=== PATIENT | female | born 1995 | race Two or more races ===

== ENCOUNTER 2023-06-07 14:51 | Emergency (ER) | payer OTHER ==
[2023-06-07 15:11] VITALS: O2SAT 99
[2023-06-07 15:20] LABS: BASOPHILS % (AUTO) 0.5 %; EOSINOPHILS # (AUTO) 0.3 10^3/uL (0.0-0.7); EOSINOPHILS % (AUTO) 5.5 %; HCT - HEMATOCRIT 42.3 % (37.0-47.0); HGB - HEMOGLOBIN 14.3 g/dL (12.0-16.0); LYMPHOCYTES # (AUTO) 1.6 10^3/uL (1.5-3.5); LYMPHOCYTES % (AUTO) 26.2 %; MEAN CORPUSCULAR HEMOGLOBIN 29.2 pg (27.0-31.0); MEAN CORPUSCULAR HGB CONC 33.8 g/dL (32.0-36.0); MEAN CORPUSCULAR VOLUME 86.5 fL (81.0-99.0); MEAN PLATELET VOLUME 10.5 fL (7.9-10.8); MONOCYTES # (AUTO) 0.3 10^3/uL (0.0-1.0); MONOCYTES % (AUTO) 5.5 %; NEUTROPHILS # (AUTO) 3.7 10^3/uL (1.5-6.6); PLT - PLATELET COUNT 221 10^3/uL (130-450); RED BLOOD COUNT 4.89 10^6/uL (4.20-5.40); RED CELL DISTRIBUTION WIDTH 12.4 % (12.0-15.0)
[2023-06-07 15:25] LABS: BILIRUBIN,URINE NEGATIVE (NEGATIVE); GLUCOSE, URINE (UA) NEGATIVE (NEGATIVE); KETONES,URINE (UA) NEGATIVE (NEGATIVE); LEUKOCYTE ESTERASE, URINE NEGATIVE (NEGATIVE); NITRITE,URINE NEGATIVE (NEGATIVE); OCCULT BLOOD,URINE NEGATIVE (NEGATIVE); PH,URINE 6.5 PH (5.0-7.5); PROTEIN,URINE NEGATIVE (NEGATIVE); UROBILINOGEN,URINE 0.2 (NORMAL) E.U./dL (NORMAL)
[2023-06-07 15:26] LABS: CLARITY,URINE CLEAR (CLEAR)
[2023-06-07 15:27] LABS: HCG UR QUAL NEGATIVE
[2023-06-07 15:33] LABS: ALBUMIN 4.7 g/dL (3.2-5.5); ALBUMIN/GLOBULIN RATIO 1.6 (1.0-2.2); BILIRUBIN,TOTAL 0.8 mg/dL (0.2-1.0); CALCIUM 9.9 mg/dL (8.5-10.3); CREATININE 0.7 mg/dL (0.6-1.3); POTASSIUM 3.8 mmol/L (3.5-4.5); TOTAL PROTEIN 7.7 g/dL (6.4-8.9)
--- NOTE | 2023-06-07 16:02 | ED Physician Documentation ---
PD HPI FEMALE - Stated complaint Stated Complaint: ,PELVIC PX - Chief complaint Chief Complaint: Abd Pain - History obtained from History obtained from: Patient - History of Present Illness Timing - onset: How many days ago (10) Timing - duration: Days (10) Timing - details: Gradual onset, Still present, Waxing and waning Associated symptoms: Pelvic pain, Vaginal discharge, Dysuria. No: Fever, Chest/shoulder pain, Genital sore/lesion Contributing factors: Sexually active. No: , Exposed to STD Similar symptoms before: Has not had sx before Recently seen: Not recently seen Review of Systems Constitutional: denies: Fever, Chills Nose: denies: Rhinorrhea / runny nose, Congestion Throat: denies: Sore throat Respiratory: denies: Cough GI: reports: Abdominal Pain, Nausea. denies: Vomiting, Constipation, Diarrhea : reports: Dysuria, Frequency, Discharge. denies: Unable to Void, Vaginal bleeding Skin: denies: Rash, Lesions PD PAST MEDICAL HISTORY - Past Medical History Cardiovascular: None Endocrine/Autoimmune: None - Present Medications Home Medications: Ambulatory Orders Medication Instructions Recorded Confirmed Fluconazole [Diflucan] 150 mg PO ONCE #1 tablet 06/07/23 Naproxen 500 mg PO BID #15 tab 06/07/23 metroNIDAZOLE [Flagyl] 500 mg PO BID 7 Days #14 tablet 06/07/23 - Allergies Allergies/Adverse Reactions: Allergies Allergy/AdvReac Type Severity Reaction Status Date / Time No Known Drug Allergies Allergy Verified 06/07/23 15:02 PD ED PE NORMAL - Vitals Vital signs reviewed: Yes - General General: Alert and oriented X 3, No acute distress, Well developed/nourished - Abdomen Abdomen: Normal bowel sounds, Soft, Non distended, Other (tender lower abd suprapubic area midline mainly. Not particularly tender right lower. No perucssion nor rebound tenderness. ) - Female Female : Deferred (can get the information with self-swab. ) - Back Back: No CVA TTP - Derm Derm: Normal color, Warm and dry Results - Vitals Vitals: Vital Signs - 24 hr 06/07/23 06/07/23 15:04 17:00 Temperature 36.8 C Heart Rate 81 80 Respiratory 16 18 Rate Blood Pressure 127/79 130/75 O2 Saturation 99 99 Oxygen O2 Source Room air - Labs Labs: Laboratory Tests 06/07/23 06/07/23 06/07/23 15:15 15:16 15:16 WBC 6.0 RBC 4.89 Hgb 14.3 Hct 42.3 MCV 86.5 MCH 29.2 MCHC 33.8 RDW 12.4 Plt Count 221 MPV 10.5 Neut # (Auto) 3.7 Lymph # (Auto) 1.6 [place] # (Auto) 0.3 Eos # (Auto) 0.3 Baso # (Auto) 0.0 Absolute Nucleated RBC 0.00 Nucleated RBC % 0.0 Sodium 137 Potassium 3.8 Chloride 103 Carbon Dioxide 30 Anion Gap 4.0 L BUN 18 Creatinine 0.7 Estimated GFR (MDRD) 99 Glucose 81 Calcium 9.9 Total Bilirubin 0.8 AST 17 ALT 39 Alkaline Phosphatase 145 H Total Protein 7.7 Albumin 4.7 Globulin 3.0 Albumin/Globulin Ratio 1.6 Lipase 21 Urine Color DARK YELLOW Urine Clarity CLEAR Urine pH 6.5 Ur Specific [place] 1.025 Urine Protein NEGATIVE Urine Glucose (UA) NEGATIVE Urine Ketones NEGATIVE Urine Occult Blood NEGATIVE Urine Nitrite NEGATIVE Urine Bilirubin NEGATIVE Urine Urobilinogen 0.2 (NORMAL) Ur Leukocyte Esterase NEGATIVE Ur Microscopic Review NOT INDICATED Urine Culture Comments NOT INDICATED Urine HCG, Qual NEGATIVE C. glabrata (PCR) C. krusei (PCR) Aster species DNA Chlam trachomat DNA PCR N.gonorrhoeae DNA (PCR) T. vaginalis (PCR) Bact Vaginosis (PCR) 06/07/23 06/07/23 16:37 16:37 WBC RBC Hgb Hct MCV MCH MCHC RDW Plt Count MPV Neut # (Auto) Lymph # (Auto) [place] # (Auto) Eos # (Auto) Baso # (Auto) Absolute Nucleated RBC Nucleated RBC % Sodium Potassium Chloride Carbon Dioxide Anion Gap BUN Creatinine Estimated GFR (MDRD) Glucose Calcium Total Bilirubin AST ALT Alkaline Phosphatase Total Protein Albumin Globulin Albumin/Globulin Ratio Lipase Urine Color Urine Clarity Urine pH Ur Specific [place] Urine Protein Urine Glucose (UA) Urine Ketones Urine Occult Blood Urine Nitrite Urine Bilirubin Urine Urobilinogen Ur Leukocyte Esterase Ur Microscopic Review Urine Culture Comments Urine HCG, Qual C. glabrata (PCR) NEGATIVE C. krusei (PCR) NEGATIVE Aster species DNA NEGATIVE Chlam trachomat DNA PCR NEGATIVE N.gonorrhoeae DNA (PCR) NEGATIVE T. vaginalis (PCR) NEGATIVE TNP Bact Vaginosis (PCR) NEGATIVE PD Medical Decision Making - ED course Complexity details: reviewed results (her vaginal PCR tests are negative, but sumptoms would be most likely c/w BV. Had given Rx for that and will continue with that idea. ), considered differential (has dysuria and frequency but UA is not c/w UTI. Has some vag mucous discharge. will get PCR for vaginitis. Presume BV initially pending lab results later today. ), d/w patient Departure - Departure Disposition: 01 Home, Self Care Clinical Impression: Lower abdominal pain, Vaginal discharge Condition: Stable Record reviewed to determine appropriate education?: Yes Instructions: ED Pelvic Pain [facility] Prescriptions: Fluconazole [Diflucan] 150 mg PO ONCE #1 tablet metroNIDAZOLE [Flagyl] 500 mg PO BID 7 Days #14 tablet Naproxen 500 mg PO BID #15 tab Comments: Your symptoms sound likely to be back to [place] vaginosis. Your urine test is normal and no signs of a bladder infection. We did do a vaginal swab test to look for signs of yeast/bacterial causes of vaginal infection. This will result later this evening or tomorrow morning. We will call you with the results or you can find them on the patient portal. Presuming finding of bacterial vaginosis or negative test, I would treat it with the metronidazole twice daily for a week for BV. I would repeat a dose of antifungal in 3 days as well. We did do blood test on you today including liver and kidney functions and both are normal. With that in mind, I think it is okay for you to be using anti- inflammatories and add Tylenol if needed for pain. I sent your prescriptions to your preferred pharmacy. The pharmacies will be closing soon this evening. You were given a dose here to start with. It is reasonable to actually wait till tomorrow to bead picker the prescriptions in case we need to change them based on the tests of this evening. Recheck if not improving well over the next several days. Forms: PCP List Discharge Date/Time: 06/07/23 17:01
[2023-06-07] MEDS ORDERED: metroNIDAZOLE 250 MG TABLET PO STA (16:31)
[2023-06-07] MEDS ORDERED: IBUPROFEN 400 MG TABLET PO STA (16:31)
[2023-06-07] MEDS ORDERED: FLUCONAZOLE 100 MG TABLET PO STA (16:31)
[2023-06-07 17:02] VITALS: BP 130/75
[2023-06-07 18:27] LABS: BACTERIAL VAGINOSIS DNA NEGATIVE (NEGATIVE); CANDIDA GLABRATA DNA NEGATIVE (NEGATIVE); CANDIDA GROUP DNA NEGATIVE (NEGATIVE); CANDIDA KRUSEI DNA NEGATIVE (NEGATIVE); TRICHOMONAS VAGINALIS DNA NEGATIVE (NEGATIVE)
[2023-06-07 19:51] LABS: CHLAMYDIA TRACHOMATIS DNA NEGATIVE (NEGATIVE); NEISSERIA GONORRHOEAE DNA NEGATIVE (NEGATIVE)
== END 2023-06-07 17:01 | disposition home or self-care (01) ==
LOC: ED 14:51
DX: R10.2 Pelvic and perineal pain (principal); N89.8 Other specified noninflammatory disorders of vagina
CPT/HCPCS: 36415; 80053; 81003; 81025; 81514; 83690; 85025; 87491; 87591; 99283; A9270; 81001; 87086; 87661